=== PATIENT | female | born 1950 | race Caucasian/White ===

== ENCOUNTER → 2020-07-22 | Outpatient (CLI) | payer MEDICARE, OTHER ==
[~2020-07-22] MED LIST: ABILIFY5 MG PO; BACLOFEN10 MG PO; COVID-19 VACC, MRNA(MODERNA)/PF 100 MCG/0.5 ML VIAL IM ONE; FLUCONAZOLE100 MG PO; HYCOSAMINE PO; HYDROXYZINE HCL25 MG PO; LIDODERM700 MG; LOPERAMIDE2 MG PO; PROMETHAZINE HC25 M1 PO; SYNTHROID75 MCG PO; ZOLOFT50 MG PO
== END ==
LOC: VACCPMC 16:30
DX: Z23 Encounter for immunization (principal); Z20.822 Contact with and (suspected) exposure to COVID-19

== ENCOUNTER → 2020-08-18 | Outpatient (CLI) | payer OTHER | END | DRG 951 | LOC: VACCPMC 09:36 | DX: Z23 Encounter for immunization (principal); Z20.822 Contact with and (suspected) exposure to COVID-19 | CPT/HCPCS: 0012A; 91301 ==

== ENCOUNTER → 2021-03-10 | Outpatient (CLI) | payer MEDICARE, OTHER ==
[~2021-03-10] MED LIST changes: -COVID-19 VACC, MRNA(MODERNA)/PF 100 MCG/0.5 ML VIAL IM ONE
[2021-03-10 13:12] LABS: HEMOGLOBIN 14.2 g/dL (12.0-16.0)
== END ==
LOC: DX 12:41
PROVIDERS: ATTEND Internal Medicine Infectious Disease
DX: N39.0 Urinary tract infection, site not specified (principal)
CPT/HCPCS: 36415; 36569; 71045; 85014; 85049

== ENCOUNTER → 2021-03-18 | Outpatient (CLI) | payer MEDICARE, OTHER | LOC: DX 09:19 | PROVIDERS: ATTEND Internal Medicine Infectious Disease | DX: N39.0 Urinary tract infection, site not specified (principal) | CPT/HCPCS: 36569; 71045 ==